=== PATIENT | female | born 1955 | race Caucasian/White ===

== ENCOUNTER 2018-03-13 00:32 | Outpatient (CLI) | payer MEDICAID, SELFPAY ==
--- NOTE | 2018-03-13 12:14 | DI.MAMMO_ITS ---
SYMPTOM/DIAGNOSIS: SCREENING, Z12.31 MAMMOGRAM: 03/13 Mammograms were interpreted according to the usual protocol including computer analysis with CAD system, tomosynthesis and C view imaging. The breasts are of moderate density with fairly symmetrical distribution of fibroglandular tissue. No dominant mass or clumped microcalcification is identified in either breast. The current examination is compared is interpreted without any available previous studies. CONCLUSION: No specific evidence of malignancy at this time. Routine screening examinations are suggested at yearly intervals in this age group according to the ACS/ACR guidelines. Category 1. Breast density category C. MQSA ASSESSMENT OF FINDINGS: Negative. Category 1. Patient will receive a letter notifying them of these results. Bi-RADS category C. The breasts are heterogeneously dense, which may obscure small masses.
== END 2018-03-13 00:52 ==
PROVIDERS: PCP Internal Medicine; Visit Provider Obstetrics & Gynecology
DX: Z12.31 Encounter for screening mammogram for malignant neoplasm of breast (principal)
CPT/HCPCS: 77063; 77067

== ENCOUNTER 2019-12-05 16:43 | Emergency (ER) | payer MEDICARE, MEDICAID, SELFPAY ==
[2019-12-05 17:05] VITALS: BP 110/87; PULSE 97; RESP 16; TEMP 36.6; O2SAT 96
--- NOTE | 2019-12-05 17:32 | ED.GENADUL_ITS ---
Discharge Plan Disposition Patient Disposition: HOME Condition: Stable Discharge Details Chief Complaint: Orthopedic Clinical Impression: Hordeolum externum of lower eyelid, Pain of right great toe Primary Care Provider: Erinn Tubbs ED Provider: Tierra Elizabeth Home Meds and New Rx's Prescriptions: New naproxen 500 mg tablet 500 mg PO BID 7 Days Qty: 14 RF: 0 Discharge Instructions Instructions: Stye (ED), Gout (ED) Additional Instructions: Follow up with primary care provider in 3-5 days. Return to ED sooner if any worsening or concerns. Increase oral fluids. Take medications as prescribed. Warm compresses 3 times a day to the eye Referrals: Erinn Tubbs [Primary Care Provider] - Discharge Data Discharge Date/Time-TO BE ENTERED AT DEPARTURE: 12/05/19 17:50 Medical Decision Making 64-year-old female presents with right base of great toe tenderness with redness and swelling for the last month. She also reports left lower eyelid swelling and tenderness which she noticed noted today. Discussed follow-up with primary care provider. Denies any radiation of pain no recent injuries or falls, she does endorse alcohol on a daily basis. She reports she has been trying hadley and black charcoal at home which has provided little to no relief. Uric acid level drawn and patient instructed to apply warm compresses to left eye 3 times a day prescription for naproxen 500 mg twice a day x7 days was ordered. Discussed possible gout decreasing tannins, alcohol intake, and red m eat, verbalized understanding. Instructed to follow-up with primary care provider. Differential diagnosis includes but not limited to osteoarthritis, occult fracture, gout, hordeolum, chalazion. HPI General Mode of arrival: ambulatory . Date/Time Provider Initiated Documentation: 12/05/19 17:07 . Limitations to Documentation: no limitations . Information obtained by: patient . HPI Narrative: 64-year-old female presents with right base of great toe tenderness with redness and swelling for the last month. She also reports left lower eyelid swelling and tenderness which she noticed noted today. Discussed follow-up with primary care provider. Denies any radiation of pain no recent injuries or falls she is a drinker. She reports she has been trying hadley and black charcoal at home which has provided little to no relief. Related Data Home Medications Medication Instructions Recorded Confirmed naproxen 500 mg PO BID 7 Days #14 tab 12/05/19 Previous Rx's Medication Instructions Recorded naproxen 500 mg PO BID 7 Days #14 tab 12/05/19 Allergies Allergy/AdvReac Type Severity Reaction Status Date / Time diphenhydramine Allergy Severe burning Verified 12/05/19 17:08 [From Benadryl] feeling in her arms. Penicillins Allergy Unverified 12/05/19 17:08 General Stated Complaint: Orthopedic STACEY: 4 Review of Systems Narrative: Constitutional: Negative for weight loss, alert and oriented, well groomed, normal body habitus, appears comfortable. HEENT: Denies trauma, headaches, blurry vision, nasal discharge, sore throat, trouble swallowing. Does report some left lower lid swelling and tenderness which she noticed last 2 days. Denies drainage. Chest: Denies chest pain, palpitations, irregular rhythm, hypertension. Respiratory: Denies Shortness of breath, cough, hemoptysis. Musculoskeletal: Reports right base of great toe tenderness slight erythema and swelling for the last month denies any recent injuries or trauma. Neuro: Denies dizziness, blurry vision, weakness, syncope, headache or facial numbness. All systems reviewed & are unremarkable except as noted in HPI and below (See above) [facility] Medical History Arthritis (Acute) Surgical History H/O total hysterectomy (Acute) Social History Smoking/Tobacco Use Status: Current every day Tobacco: How many years used: 30 Alcohol Intake: current Alcohol Intake frequency: 3 or more drinks per day Substance use type: does not use Adopted: No Caregiver/Support person: No Foster care: No Household members: family Housing: house Number of Children: 2 number of grandchildren: 2 Pets and animals: Yes Sexually active: No Current gender identity: female What type of physical activity do you participate in: walking Frequency: 3-4 times per week Seatbelt use: always Do you feel safe at home: Yes Do you feel safe in your relationship?: Yes Exam Narrative Exam Narrative: Constitutional: Alert and oriented x3. Appears stated age. Normal body habitus. Head: Normocephalic, no trauma. Eyes: Pupils PERRLA, Red reflex noted, EOM's intact. Left lower eyelid is swollen, internal erythema noted, no drainage no conjunctivitis, no evidence of blepharitis. Musculoskeletal: Normal gait, 5/5 strength to all four extremities. Right base of great toe is slightly erythemic, mildly swollen and tender to palpation. No obvious deformity or signs of infection. Patient is ambulatory upon arrival and is wearing slippers in the department. Skin: No suspicious rashes or lesions. Capillary refill less than 2 sec. Neurologic: Cranial nerves II-XII intact. Alert and oriented x 3. DTR's intact. Hematologic/Lymphatic: No ecchymosis, no lymphadenopathy. Course Vital Signs Vital signs: Vital Signs Temperature 36.6 C 12/05/19 17:05 Pulse 97 H 12/05/19 17:05 Respiratory Rate 16 12/05/19 17:05 Blood Pressure 110/87 12/05/19 17:05 Pulse Oximetry 96 12/05/19 17:05 Temperature 36.6 C 12/05/19 17:05 Temperature Source Skin 12/05/19 17:05 Pulse 97 H 12/05/19 17:05 Respiratory Rate 16 12/05/19 17:05 Respiratory Effort Non-Labored 12/05/19 17:06 Blood Pressure 110/87 12/05/19 17:05 Blood Pressure Position Sitting 12/05/19 17:05 Pulse Oximetry 96 12/05/19 17:05 Oxygen Delivery Method Room Air 12/05/19 17:05 Oxygen Flow Rate 0 12/05/19 17:05 Pain Level 8 12/05/19 17:16
[2019-12-05 17:45] VITALS: BP 110/87; PULSE 97; RESP 16; TEMP 36.6; O2SAT 96
[2019-12-05 18:00] LABS: Uric Acid 4.7 mg/dL (2.6-6.0)
== END 2019-12-05 17:50 | disposition home or self-care (01) ==
PROVIDERS: Emergency Provider Registered Nurse Emergency; PCP Family Medicine
DX: M79.674 Pain in right toe(s) (principal); H00.015 Hordeolum externum left lower eyelid
CPT/HCPCS: 36415; 99283; 84550

== ENCOUNTER 2020-08-22 09:11 | Emergency (ER) | payer OTHER, MEDICAID, SELFPAY ==
--- NOTE | 2020-08-22 09:13 | ED.GENADUL_ITS ---
Discharge Plan Disposition Patient Disposition: HOME Condition: Good Discharge Details Clinical Impression: Leg pain, Burning sensation Primary Care Provider: Erinn Tubbs ED Provider: Rebekah Sánchez Home Meds and New Rx's Prescriptions: Continued magnesium chloride 64 mg Tablet Extended Release PO DAILY RF: 0 calcium 100 mg Capsule PO DAILY RF: 0 ferrous sulfate 325 mg (65 mg iron) Capsule, Extended Release 130 mg PO DAILY RF: 0 aspirin 81 mg Tablet,Delayed Release (Dr/Ec) 81 mg PO DAILY RF: 0 Discharge Instructions Instructions: Leg Pain (ED) Additional Instructions: Your exam and laboratory evaluation are reassuring today Please continue with reduced alcohol intake. Please try to cut back on smoking Try rolling, stretching continue with heat as we discussed to the areas of discomfort. Please follow-up with your primary care provider in the next 2 weeks for reevaluation. Physical therapy referral is attached to help with your knee pain, please call Sunday to schedule appointment. If you develop fever/chills, increased pain, rash, shortness of breath, chest pain or other new/worsening symptoms care urgently once again Stand Alone Forms: Physical Therapy Referral Referrals: Erinn Tubbs [Primary Care Provider] - Medical Decision Making Patient is a pleasant 65-year-old female with past medical history significant for arthritis, presenting today with chief complaint of burning in the lateral aspect of the left thigh and aching the posterior aspect of the right knee. She reports that the aching in the posterior aspect of the right knee began approximately 3 weeks ago, insidious onset. She reports the pain is maximal when she tries to extend her leg. Denies any trauma. States she is quite active but no change in activity level. She denies any numbness or tingling. No radiation of pain. Has not had any periods of being sedentary. No recent travel. No recent surgery. Patient is an active smoker. She reports with the burning on the anterior aspect of the left thigh began 1 week ago. It is fairly constant but can wax and wane in severity and is not linked to any type of movement or time of day. Again, patient denies any numbness or tingling. No trauma to this area. Patient reports that 1 week ago she began on magnesium and calcium supplementation. Is chronically on iron supplementation. Patient reports that overall the pain has improved but came in today as she is supposed to have her first COVID-19 vaccination a week from today and family was concerned she may have a blood clot which would make her ineligible for the vaccine. On exam, patient appears anxious but nontoxic. Heart rate is elevated at 120 the patient reports that she was very anxious when she first came in. This did come down on auscultation of cardiac sounds. She denies any chest pain shortness of breath. Asked by thing remarkable on exam of the bilateral lower extremities. No rash no erythema trauma evidence of DVT. Calves are soft and nontender. She 2+ distal pulses. No evidence of ligamentous injury or trauma to her knees hips or ankles. Did not see any rash. Patient denied ever having rash or area of burning. Plan to obtain baseline labs to evaluate for potential electrolyte abnormalities as well as D-dimer to screen for DVT. Patient smoking does increase her risk but otherwise, she seems quite low risk for DVT at this time. Her exam is more consistent with muscle tightness, particular on the right side. She not having any distal paresthesias. Labs reviewed. No leukocytosis. Stable H&H. D-dimer is within age-adjusted normal. CMP mild elevation of her ALT. Patient reports that she has been drinking regularly but has not had a drink in approximately 1 week and is trying to cut back. I encouraged rolling, stretching massage of the areas in question. Patient reports that she does have a TENS unit that she will start using. Pain has been improving recently and she will continue with warm compresses as this seems to have been helping her significantly. Return precautions were discussed. Referral for physical therapy given. I did advise follow-up with primary care in the next 2 weeks for reevaluation. All of her questions and concerns were addressed and she is in agreement HPI General Mode of arrival: ambulatory . Date/Time Provider Initiated Documentation: 08/22/20 09:13 . Limitations to Documentation: no limitations . Information obtained by: patient and RN notes reviewed . History of Present Illness 65 year old F presents to the emergency department with the chief complaint of burning left thigh, aching right knee, described as mild (reports when at rest currently it is a mild ache, at max can be an 8/10), Quality is described as burning and aching, and is localized to the left, right and lower extremity. Patient reports no radiation. Patient started experiencing this week(s) (3) and it has been constant. No relieving factors improve sympto m(s), No exacerbating factors reported . Patient notes denies chest pain, cough, fever/chills, loss of appetite, nausea/vomiting, rash, shortness of breath and weakness. Patient did receive the following treatments prior to arrival, none Related Data Home Medications Medication Instructions Recorded Confirmed aspirin 81 mg PO DAILY 08/22/20 08/22/20 calcium mg PO DAILY 08/22/20 ferrous sulfate 130 mg PO DAILY 08/22/20 08/22/20 magnesium chloride mg PO DAILY 08/22/20 Allergies Allergy/AdvReac Type Severity Reaction Status Date / Time diphenhydramine Allergy Severe burning Verified 08/22/20 09:27 [From Benadryl] feeling in her arms. Penicillins Allergy Unknown Unverified 08/22/20 09:27 General STACEY: 4 Review of Systems Constitutional Constitutional: Reports as per HPI, Denies chills, Denies fever(s), Denies heada yelena(s) and Denies weakness ENT Ears, Nose, Mouth, and Throat: Denies headache(s) Cardiovascular Cardiovascular: Reports as per HPI, Denies chest pain, Denies chest pain with activity, Denies claudication, Denies leg ulcers, Denies leg edema, Denies lightheadedness, Denies dyspnea and Denies dyspnea on exertion Respiratory Respiratory: Reports as per HPI, Denies cough, Denies dyspnea and Denies dyspnea on exertion Gastrointestinal Gastrointestinal: Denies abdominal pain and Denies change in bowel habits Musculoskeletal Musculoskeletal: Reports as per HPI, Denies abnormal gait, Denies deformity, Denies numbness, Denies radiating pain into limb and Denies tingling Integumentary/Breasts Skin/Breast: Reports as per HPI, Denies rash and Denies wounds Neurologic Neurologic: Reports as per HPI, Denies abnormal gait, Denies headache(s), Denies numbness, Denies tingling, Denies paresthesias and Denies weakness PFSH Medical History (Updated 08/22/20 @ 10:40 by LESLIE Wolff) Arthritis Surgical History H/O total hysterectomy Social History Smoking/Tobacco Use Status: Current every day Tobacco: How many years used: 30 Smoking risk assessment performed?: Yes Alcohol Intake: current Alcohol Intake frequency: 3 or more drinks per day [place] type: beer Drug use: Never Substance use type: does not use Adopted: No Caregiver/Support person: No Foster care: No Household members: family Housing: house Number of Children: 2 number of grandchildren: 2 Pets and animals: Yes Sexually active: No Current gender identity: female What type of physical activity do you participate in: walking Frequency: 3-4 times per week Seatbelt use: always Do you feel safe at home: Yes Do you feel safe in your relationship?: Yes Exam Const General: cooperative, healthy appearing, comfortable, no acute distress, well developed, well groomed and anxious Nutritional Appearance: average body habitus and well nourished Orientation: alert and awake Resp Effort & Inspection: normal respiratory effort, able to speak in complete sentences and no respiratory distress Auscultation: clear to auscultation bilaterally Cardio Rate: regular rate Rhythm: regular rhythm Heart Sounds: S1 normal and S2 normal Skin General skin exam: no rashes or lesions noted Lesions: no lesions Rashes: no rashes Trauma: no lacerations or abrasions Neuro General: patient alert and patient awake Cognition: normal cognition Speech: speech normal Gait: normal gait Motor: muscle tone normal throughout Sensory Exam: no sensory deficits noted Extrem Right lower extremity: normal to inspection, full ROM, normal capillary refill, no joint enlargement, hip/thigh Details: normal to inspection and normal ROM; no tenderness and no swelling, knee Details: normal to inspection, normal ROM and knee ligament exam normal; no tenderness and no swelling, lower leg Details: normal to inspection and no edema; no erythema, no tenderness, no localized swelling and no palpable cords, ankle Details: normal to inspection and foot Details: normal capillary refill and vascular exam Details: dorsalis pedis pulse present, posterior tibial pulse present and normal capillary refill; no cyanosis and no edema Left lower extremity: normal to inspection, full ROM, normal capillary refill, no joint enlargement, hip/thigh Details: normal to inspection and normal ROM, knee Details: normal to inspection, normal ROM and knee ligament exam normal; no tenderness and no swelling, lower leg Details: normal to inspection and no edema; no tenderness, no localized swelling and no palpable cords, ankle Details: normal to inspection and foot Details: normal capillary refill and vascular exam Details: dorsalis pedis pulse present, posterior tibial pulse present and normal capillary refill; no cyanosis and no edema Psych Appearance: grossly normal and well kempt Mental Status: mental status grossly normal Speech and Movement: speech and movement normal
[2020-08-22 09:19] VITALS: BP 129/93; PULSE 120; RESP 16; TEMP 36.7; O2SAT 99
[2020-08-22 09:57] LABS: Abs Immature Grans 0.02 10^3/uL (0.0-0.06); Absolute Basophil Count 0.04 10^3/uL (0.0-0.2); Absolute Eosinophil Count 0.06 10^3/uL (0.0-0.7); Absolute Lymphocyte Count 1.34 10^3/uL (1.2-3.4); Absolute Monocyte Count 0.36 10^3/uL (0.1-0.8); Absolute Neutrophil Count 5.24 10^3/uL (1.2-6.7); Basophils % 0.6; Eosinophils % 0.8; HCT 44.8 % (36.0-46.0); HGB 15.1 g/dL (11.2-15.7); Immature Grans % 0.3; MCH 33.6 pg (27.0-33.0); MCHC 33.7 % (32.0-36.0); MCV 99.8 fL (80-95); MPV 9.3 fL (8.0-11.0); Monocytes % 5.1; Neutrophils % 74.2; Nucleated RBC 0 %; Platelet Count 284 10^3/uL (130-400); RBC 4.49 10^6/uL (3.93-5.22); RDW 13.1 % (11.7-14.6); RDW-SD 48.8 fL; WBC 7.06 10^3/uL (4.4-10.8)
[2020-08-22 10:15] LABS: ALT 69 U/L (14-59); AST 32 U/L (15-37); Alkaline Phosphatase 88 U/L (46-116); Anion Gap 12.4 mmol/L (3-11); BUN 8 mg/dL (7-18); Bilirubin, Total 0.7 mg/dL (0.2-1.0); CO2 25.6 mmol/L (21.0-32.0); CREATININE 0.7 mg/dL (0.55-1.02); Calcium 9.8 mg/dL (8.5-10.1); Chloride 101 mmol/L (98-107); Glucose 129 mg/dL (74-106); Potassium 3.7 mmol/L (3.5-5.1); Sodium 139 mmol/L (136-145); Total Protein 7.8 g/dL (6.4-8.2)
[2020-08-22 10:27] LABS: D-Dimer 538 ng/mlFEU (<500)
[2020-08-22 10:44] VITALS: PULSE 92; RESP 18; O2SAT 98
--- NOTE | 2020-08-22 11:18 | NUR.NOTE ---
Nursing Note: Referral given to care management to call patient to make sure that she gets an appt for follow up with PCP. Referral faxed to [facility]. Patient does have Dr. Tubbs, but is going to call [facility] for the follow up appt. She stated she is going to switch to that office. Referral for leg pain in 2 weeks. Betsy Ortiz
== END 2020-08-22 10:45 | disposition home or self-care (01) ==
PROVIDERS: Emergency Provider Physician Assistant; PCP Family Medicine
DX: M79.652 Pain in left thigh (principal); M25.562 Pain in left knee
CPT/HCPCS: 36415; 80053; 99283; 83735; 85025; 85379; 99282

== ENCOUNTER 2020-10-27 18:00 | Emergency (ER) | payer OTHER, MEDICAID, SELFPAY ==
[2020-10-27 18:08] VITALS: BP 110/70; PULSE 90; RESP 16; TEMP 36.8; O2SAT 100
--- NOTE | 2020-10-27 19:04 | DI.RAD_ITS ---
Exam(s) XR FOOT RT COMPLETE EXAM: XR FOOT RT COMPLETE CLINICAL HISTORY: trauma, pain. TECHNIQUE: 2D digital imaging was performed. COMPARISON: No exams were available for comparison FINDINGS: There is no evidence of fracture nor diastasis of the Lisfranc joint. Advanced degenerative changes are noted at the great toe metatarsophalangeal joint. Joint space narrowing and degenerative subarti cular cyst at this level noted. Os tibialis externum incidentally noted on the medial aspect of the foot adjacent to the navicular tuberosity. Inferior calcaneal spur is noted as is calcaneal enthesop hyte at the insertion site of the Achilles on the posterior calcaneus. IMPRESSION: No fractures. Degenerative changes at the great toe metatarsophalangeal joint. DATA REPOSITORY: RADIATION DOSE DELIVERED:
--- NOTE | 2020-10-27 19:41 | ED.GENADUL_ITS ---
Discharge Plan Disposition Patient Disposition: HOME Condition: Stable Discharge Details Clinical Impression: Contusion Primary Care Provider: Erinn Tubbs ED Provider: Carmen Ybarra Home Meds and New Rx's Prescriptions: Continued magnesium chloride 64 mg Tablet Extended Release PO DAILY RF: 0 calcium 100 mg Capsule PO DAILY RF: 0 ferrous sulfate 325 mg (65 mg iron) Capsule, Extended Release 130 mg PO DAILY RF: 0 aspirin 81 mg Tablet,Delayed Release (Dr/Ec) 81 mg PO DAILY RF: 0 Discharge Instructions Instructions: Contusion in Adults (ED) Additional Instructions: wear post op shoe as directed acetaminophen and or ibuprofen as directed for pain elevate and ice as needed. Referrals: Erinn Tubbs [Primary Care Provider] - Medical Decision Making Traumatic injury with ongoing pain to the right foot no obvious deformity no rashes or lesions. Will obtain plain film which was reviewed and is negative for acute fracture. She will be placed in a postoperative shoe to facilitate healing she is advised to elevate ice or heat and NSAIDs. Medical Records Medical records reviewed: Yes I reviewed the patient's medical records. Imaging Data Radiologic Study: Imaging: X-Ray (right foot) Radiologist's impression: Patient Name: Shiva Ferrera #: [id number]: ER Ordering Provider: Carmen Ybarra NPAccount #: [id number]: REG ER Primary Care Provider: Fredis Tubbs of Exam: 10/27/20Sex: F Admission Date: 10/27/20 : 1955 Age: 65 Exam(s) XR FOOT RT COMPLETE EXAM: XR FOOT RT COMPLETE CLINICAL HISTORY: trauma, pain. TECHNIQUE: 2D digital imaging was performed. COMPARISON: No exams were available for comparison FINDINGS: There is no evidence of fracture nor diastasis of the Lisfranc joint. Advanced degenerative changes are noted at the great toe metatarsophalangeal joint. Joint space narrowing and degenerative subarticular cyst at this level noted. Os tibialis externum incidentally noted on the medial aspect of the foot adjacent to the navicular tuberosity. Inferior calcaneal spur is noted as is calcaneal enthesophyte at the insertion site of the Achilles on the posterior calcaneus. IMPRESSION: No fractures. Degenerative changes at the great toe metatarsophalangeal joint. HPI General Date/Time Provider Initiated Documentation: 10/27/20 18:14 . Limitations to Documentation: no limitations . Information obtained by: patient . HPI Narrative: Patient presents to the e mergency department for evaluation of a foot injury she sustained over a week ago reporting that she had stubbed her foot on something. She reports ongoing pain denies rash or deformity. She is able to bear weight but is limping Related Data Home Medications Medication Instructions Recorded Confirmed aspirin 81 mg PO DAILY 08/22/20 08/22/20 calcium mg PO DAILY 08/22/20 ferrous sulfate 130 mg PO DAILY 08/22/20 08/22/20 magnesium chloride mg PO DAILY 08/22/20 Allergies Allergy/AdvReac Type Severity Reaction Status Date / Time diphenhydramine Allergy Severe burning Verified 08/22/20 09:27 [From Benadryl] feeling in her arms. Penicillins Allergy Unknown Unverified 08/22/20 09:27 General Stated Complaint: Orthopedic STACEY: 5 Review of Systems All systems reviewed & are unremarkable except as noted in HPI and below PFSH Medical History (Updated 10/27/20 @ 19:41 by Carmen Ybarra NP) Arthritis Surgical History H/O total hysterectomy Social History Smoking/Tobacco Use Status: Current every day Tobacco: How many years used: 30 Smoking risk assessment performed?: Yes Alcohol Intake: current Alcohol Intake frequency: 3 or more drinks per day Alcohol type: beer Drug use: Never Substance use type: does not use Adopted: No Caregiver/Support person: No Foster care: No Household members: family Housing: house Number of Children: 2 number of grandchildren: 2 Pets and animals: Yes Sexually active: No Current gender identity: female What type of physical activity do you participate in: walking Frequency: 3-4 times per week Seatbelt use: always Do you feel safe at home: Yes Do you feel safe in your relationship?: Yes Course Vital Signs Vital signs: Vital Signs Temperature 36.8 C 10/27/20 18:08 Pulse 90 10/27/20 18:08 Respiratory Rate 16 10/27/20 18:08 Blood Pressure 110/70 10/27/20 18:08 Pulse Oximetry 100 10/27/20 18:08 Temperature 36.8 C 10/27/20 18:08 Pulse 90 10/27/20 18:08 Respiratory Rate 16 10/27/20 18:08 Respiratory Effort 10/27/20 18:13 Blood Pressure 110/70 10/27/20 18:08 Blood Pressure Position Sitting 10/27/20 18:08 Pulse Oximetry 100 10/27/20 18:08 Oxygen Delivery Method Room Air 10/27/20 18:08 Oxygen Flow Rate 0 10/27/20 18:08 Pain Level 5 10/27/20 19:16
--- NOTE | 2020-10-27 20:11 | DI.VRAD_ITS ---
PROCEDURE INFORMATION: Exam: XR Right Foot Exam date and time: 10/27/2020 6:19 PM Age: 65 years old Clinical indication: Injury or trauma; Fall; Blunt trauma; Foot; Right TECHNIQUE: Imaging protocol: XR Right foot. Views: 3 or more views. COMPARISON: No relevant prior studies available. FINDINGS: Bones/joints: There is joint space narrowing and hypertrophic degenerative changes of the first metatarsophalangeal joint. Inferior and posterior calcaneal enthesophyte formation is present. Soft tissues: Normal. IMPRESSION: 1. Hypertrophic degenerative changes of the first MTP joint. 2. No acute fracture is noted. 3. Calcaneal enthesophyte (bone spur) formation. Dictated and Authenticated by: Barry Mckeon MD. Ordering:KRISTAN Morales MD
== END 2020-10-28 19:45 | disposition home or self-care (01) ==
PROVIDERS: Emergency Provider Nurse Practitioner Acute Care; PCP Family Medicine
DX: S90.31XA Contusion of right foot, initial encounter (principal); W22.8XXA Striking against or struck by other objects, initial encounter
CPT/HCPCS: 99283; 73630; 99282

== ENCOUNTER 2020-11-19 17:07 | Outpatient (REF) | payer OTHER, MEDICAID, SELFPAY | END 2020-11-19 17:08 | disposition home or self-care (01) | LOC: NCHCN 17:07 | PROVIDERS: PCP Family Medicine; Visit Provider Physician Assistant | DX: L98.9 Disorder of the skin and subcutaneous tissue, unspecified (principal) | CPT/HCPCS: 87077; 87070; 87186; 87205 ==

== ENCOUNTER 2021-08-24 17:32 | Outpatient (REF) | payer OTHER, MEDICAID, SELFPAY ==
[2021-08-26 12:28] LABS: COVID-19 RT-PCR UVMMC Result Negative (Negative)
== END 2021-08-24 17:33 | disposition home or self-care (01) ==
LOC: LBN 17:32
PROVIDERS: PCP Family Medicine; Visit Provider Physician Assistant Medical
DX: Z20.822 Contact with and (suspected) exposure to COVID-19; J02.9 Acute pharyngitis, unspecified; R05.8 Other specified cough; R09.89 Other specified symptoms and signs involving the circulatory and respiratory systems; R53.83 Other fatigue
CPT/HCPCS: U0003